=== PATIENT | female | born 1995 | race Two or more races ===

== ENCOUNTER 2018-10-05 20:21 | Emergency (ER) | payer OTHER ==
[~2018-10-05] VITALS: Ht 152.4 cm; Wt 45.4 kg
[2018-10-05 20:28] VITALS: BP 115/75
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
[2018-10-05] MEDS ORDERED: ORPH100T PO (20:59)
[2018-10-05] MEDS ORDERED: HYDR-3164 PO (20:59)
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
== END 2018-10-05 21:04 | disposition home or self-care (01) ==
LOC: ER 20:21
DX: S39.012A Strain of muscle, fascia and tendon of lower back, initial encounter (principal); S20.212A Contusion of left front wall of thorax, initial encounter; V43.92XA Unspecified car occupant injured in collision with other type car in traffic accident, initial encounter; Y93.89 Activity, other specified; Y92.481 Parking lot as the place of occurrence of the external cause; Y99.8 Other external cause status
CPT/HCPCS: 71046; 99283; 99284

== ENCOUNTER 2019-04-21 10:58 | Emergency (ER) | payer BC, OTHER ==
[~2019-04-21] VITALS: Ht 152.4 cm; Wt 44.0 kg
[~2019-04-21 10:58] MED LIST: HYDR-3164 PO; ORPH100T PO
[2019-04-21 11:10] VITALS: BP 134/60
--- NOTE | 2019-04-21 11:32 | PHYS DOC ---
Past Medical History Past Medical History: No Pertinent History Past Surgical History: No Surgical History Alcohol Use: None Drug Use: None Adult General Chief Complaint Chief Complaint: VAGINAL PROBLEM HPI HPI Patient is a 23 year old [female] who presents with [vaginal itching 1 week. Patient reports she has some vaginal itching for the last week, which started shortly after having intercourse with her independent other. Reports she has not any lesions. However does report her significant other has had a"rash" to his penis which she describes as dry and flaky. States she has not seen any blistering or vesicles. Denies any vaginal discharge. Denies any concern over STD. States no change in urination. States she has not tried any new products, however she has recently changed her bodies of approximately 1 week as well. Denies anybody rash to herself.] Review of Systems Review of Systems Constitutional: Denies fever or chills [] Respiratory: Denies cough or shortness of breath [] Cardiovascular: No additional information not addressed in HPI [] GI: Denies abdominal pain, nausea, vomiting, bloody stools or diarrhea [] : Denies dysuria or hematuria, Reports vaginal itching x 7 days [] Musculoskeletal: Denies back pain or joint pain [] Integument: Denies rash or skin lesions [] All other systems were reviewed and found to be within normal limits, except as documented in this note. Allergies Allergies Allergies Coded Allergies Type Severity Reaction Last Updated Verified No Known Drug Allergies 10/05/18 No Physical Exam Physical Exam Constitutional: Well developed, well nourished, no acute distress, non-toxic appearance. [] Eyes: PERRLA, EOMI, conjunctiva normal, no discharge. [] Cardiovascular:Heart rate regular rhythm, no murmur [] Abdomen: Bowel sounds normal, soft, no tenderness, no masses, no pulsatile masses. [] Skin: Warm, dry, no erythema, no rash. [] Neurologic: Alert and oriented X 3, normal motor function, ] Psychologic: Affect normal, judgement normal, mood normal. [] Pelvic exam, chaperoned by RN. Patient noted to have small amount of whitish discharge along cervix. Cervix without erythema or tenderness. os closed. no blood noted. no lesions noted on vaginal canal or on labia. Current Patient Data Vital Signs Vital Signs Date Time Temp Pulse Resp B/P (MAP) Pulse Ox O2 Delivery O2 Flow Rate FiO2 04/21/19 11:10 98.5 71 16 134/60 (84) 100 Room Air 98.5 Lab Values Laboratory Tests Test 04/21/19 11:03 04/21/19 11:04 Urine Collection Type Unknown Urine Color Yellow Urine Clarity Clear Urine pH 5.5 Urine Specific [place] >=1.030 Urine Protein Negative mg/dL (NEG-TRACE) Urine Glucose (UA) Negative mg/dL (NEG) Urine Ketones (Stick) Negative mg/dL (NEG) Urine Blood Negative (NEG) Urine Nitrite Negative (NEG) Urine Bilirubin Negative (NEG) Urine Urobilinogen Dipstick 1.0 mg/dL (0.2 mg/dL) Urine Leukocyte Esterase Negative (NEG) Urine RBC Rare /HPF (0-2) Urine WBC 1-4 /HPF (0-4) Urine Squamous Epithelial Cells Many /LPF Urine Bacteria Few /HPF (0-FEW) Urine Mucus Marked /LPF POC Urine HCG, Qualitative Hcg negative (Negative) Microbiology 04/21/19 Wet Prep - Final, Complete EKG EKG [] Radiology/Procedures Radiology/Procedures [] Course & Med Decision Making Course & Med Decision Making Pertinent Labs and Imaging studies reviewed. (See chart for details) Reviewed results with normal vaginal panel, no BV, no yeast, no UTI. No lesions noted. Patient with no concerns over STI. Discussed irritation from intercourse causing discomfort, advised to ensure proper lubrication. Discussed having partner be tested at health department for his penile conditions, to help pinpint other potential problems with patient. Patient reports his lesions are on his scrotum. [] Dragon Disclaimer Dragon Disclaimer This electronic medical record was generated, in whole or in part, using a voice recognition dictation system. Departure Departure Impression: Primary Impression: Vaginal irritation Disposition: HOME, SELF-CARE Condition: STABLE Referrals: NO PCP (PCP) Patient Instructions: Itching-Brief Additional Instructions: As we discussed, there was no abnormalities found on your exam or on your lab testing today. He should make sure you're partner gets evaluated at the health department to determine what the lesions are on his penis. As we discussed, he may want to consider ensure proper lubrication prior to intercourse. You may consider using a water-based lubricant, like KY jelly. Follow up with your OBGYN for any further concerns if needed TEJINDER MANJARREZ APRN Apr 21, 2019 11:32
[2019-04-21 11:48] LABS: BILIRUBIN,URINE NEGATIVE (NEG); CLARITY,URINE CLEAR; COLOR,URINE YELLOW; NITRITE,URINE NEGATIVE (NEG); PH,URINE 5.5; PROTEIN,URINE NEGATIVE (NEG-TRACE)
[2019-04-21 12:02] LABS: SQUAMOUS EPITHELIAL CELL,UR MANY /LPF
[2019-04-21 12:03] LABS: BACTERIA,URINE FEW /HPF (0-FEW); RBC,URINE RARE /HPF (0-2)
[2019-04-23 18:09] LABS: GC PROBE Negative (Negative)
== END 2019-04-21 13:41 | disposition home or self-care (01) ==
LOC: ER 11:27
DX: N89.8 Other specified noninflammatory disorders of vagina (principal)
CPT/HCPCS: 81001; 81025; 87491; 87591; 99284; Q0111